=== PATIENT | male | born 1995 | race Caucasian/White ===

== ENCOUNTER 2019-04-20 20:21 | Emergency (ER) | payer OTHER ==
[~2019-04-20] VITALS: Ht 172.7 cm; Wt 61.4 kg
[2019-04-20 20:21] VITALS: BP 122/66
[2019-04-20] MEDS ORDERED: diphenhydrAMINE 50 MG CAP PO ONE (21:45)
[2019-04-20] MEDS ORDERED: PRIL20TA2 PO (22:34)
[2019-04-20] MEDS ORDERED: BENA25CA4 PO (22:34)
== END 2019-04-20 22:44 | disposition home or self-care (01) ==
LOC: M ED 20:21
DX: L23.7 Allergic contact dermatitis due to plants, except food (principal)